=== PATIENT | female | born 1945 | race Asian ===

== ENCOUNTER → 2019-11-24 13:49 | Outpatient (CLI) | payer MEDICARE, BC, SELFPAY ==
--- NOTE | 2019-12-09 16:28 | PM.CARDMON.1 ---
[employer] Report Referral & Results Date Patient Seen: 11/24/19 Requesting provider: Samantha Olsen Indication: Palpitations Duration of monitoring (days): 7 Diary information: There were no patient diary entries or patient triggered events to correlate with any potential dysrhythmia Data: Minimum heart rate identified was 46 beats per minute at 07:17 on 11/27/2019 Maximum sinus heart rate was 143 beats per minute at 13:23 on 11/28/2019 Maximum overall heart rate was 184 beats per minute at 19:08 on 11/30/2019 during an 8.2 second run of supraventricular tachycardia Less than 1% of identified beats rather ventricular supraventricular ectopic in origin. Patient did have 7 runs of SVT the maximum rate being 184 beats per minute, and the fastest as above was also the longest run Impression: This teletypesetter monitor shows occasional to rare episodes of brief SVT as above No other significant dysrhythmias identified No symptoms to correlate with findings
== END ==
PROVIDERS: Referring Provider Family Medicine; Visit Provider Family Medicine
DX: R00.2 Palpitations (principal)
CPT/HCPCS: 0296T; 0298T

== ENCOUNTER → 2021-07-30 14:56 | Outpatient (CLI) | payer MEDICARE, BC, SELFPAY ==
--- NOTE | 2021-07-30 14:59 | DI.RAD.S_ITS ---
PROCEDURE: XR LUMBAR SPINE 2-3V INDICATIONS: BACK PAIN SCOLIOSIS TECHNIQUE: 2 views of the lumbar spine were acquired. COMPARISON: None. FINDINGS: Bones: 5 [id number] vertebrae are present. Dextrocurvature of the lumbar spine with associated facet arthrosis and endplate sclerosis/osteophytosis. At least moderate disc height loss at T12-S1. No vertebral body compression fractures. No suspicious bony lesions. Soft tissues: Overlying bowel gas pattern is normal. No suspicious soft tissue calcifications. IMPRESSION: No acute osseous abnormality. Dictated by: Silvio Iraheta M.D. on 07/30/2021 at 16:04 Approved by: Silvio Iraheta M.D. on 07/30/2021 at 16:07
--- NOTE | 2021-07-30 14:59 | DI.RAD.S_ITS ---
PROCEDURE: XR THORACIC SPINE 2V INDICATIONS: BACK PAIN SCOLIOSIS TECHNIQUE: 2 views of the thoracic spine were acquired. COMPARISON: None. FINDINGS: Bones: No fractures or dislocations. No suspicious bony lesions. Visualized ribs are intact. Moderate leftward curvature of the spine at the thoracolumbar junction. Moderate rightward curvature of the mid lumbar spine. Multilevel disc space narrowing and endplate osteophyte formation throughout the lumbar and thoracic spine. Soft tissues: No paravertebral stripe thickening. IMPRESSION: Multilevel degenerative disc disease. No acute fracture. No osseous lesion. If symptoms and/or clinical suspicion for pathology persist, further assessment with repeat, or advanced imaging (e.g., CT, MRI, or bone scan) may be helpful for further assessment. Dictated by: Lauren Grant M.D. on 07/30/2021 at 16:07 Approved by: Lauren Grant M.D. on 07/30/2021 at 16:54
== END ==
PROVIDERS: PCP Family Medicine; Referring Provider Family Medicine; Visit Provider Family Medicine
DX: M41.9 Scoliosis, unspecified (principal); M54.9 Dorsalgia, unspecified; M47.814 Spondylosis without myelopathy or radiculopathy, thoracic region
CPT/HCPCS: 72070; 72100

== ENCOUNTER → 2023-10-29 14:45 | Outpatient (CLI) | payer MEDICARE, BC, SELFPAY ==
--- NOTE | 2023-10-29 | DI.RAD.S_ITS ---
PROCEDURE: XR LUMBAR SPINE MIN 4V INDICATIONS: BACK PAIN TECHNIQUE: 5 views of the lumbar spine were acquired, including bilateral oblique views.>> COMPARISON: Located Within [facility], CR, XR LUMBAR SPINE 2-3V, 07/30/2021, 15:04. FINDINGS: Bones: 5 nonrib-bearing vertebrae are present. The lumbar spine shows severe dextroscoliosis with apex at L3. Abnormal kyphotic curvature is also noted with apex at L1.Diffuse degenerative changes are seen throughout the lumbar spine with disc space destruction, endplate sclerosis and osteophytes. Soft tissues: Overlying bowel gas pattern is unremarkable. No suspicious soft tissue calcifications. Oblique images: No pars defects identified. 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 on 10/29/2023 at 16:19 Approved by: Jethro Domingo M.D. on 10/29/2023 at 16:22
--- NOTE | 2023-10-29 | DI.RAD.S_ITS ---
PROCEDURE: XR THORACIC SPINE 3V INDICATIONS: BACK PAIN TECHNIQUE: 3 views of the thoracic spine were acquired. COMPARISON: [facility], CR, XR THORACIC SPINE 2V, 07/30/2021, 15:04. FINDINGS: Bones: Severe levoscoliosis of the thoracolumbar junction is identified with apex at T12. Severe degenerative changes of T12-L1 and L1-L2 also noted. No acute fractures or dislocations. No suspicious bony lesions. Twelve pairs of ribs are noted, and appear intact where visualized. Soft tissues: Atherosclerotic calcifications of the aorta noted. IMPRESSION: Severe levoscoliosis of the thoracolumbar junction with severe degenerative changes at T12-L1 and L1-L2 Dictated by: Jethro Domingo M.D. on 10/29/2023 at 16:14 Approved by: Jethro Domingo M.D. on 10/29/2023 at 16:17
== END ==
PROVIDERS: PCP Family Medicine; Referring Provider Family Medicine; Visit Provider Family Medicine
DX: M47.814 Spondylosis without myelopathy or radiculopathy, thoracic region (principal); M47.816 Spondylosis without myelopathy or radiculopathy, lumbar region; M41.20 Other idiopathic scoliosis, site unspecified; M54.50 Low back pain, unspecified; M25.551 Pain in right hip
CPT/HCPCS: 72072; 72100

== ENCOUNTER → 2023-11-30 08:49 | Outpatient (CLI) | payer MEDICARE, BC, SELFPAY ==
--- NOTE | 2023-11-30 | DI.ECHO.S_ITS ---
[facility]---------+ [facility] +---------+ : : [address] [place] [address] : : : : [id number] : : : : Phone: [phone]+ Echocardiogram Report + + :Name: SONY SALCIDO Study Date: 11/30/2023 Height: 60 in : :[facility] ReadingLocation: Weight: 134 lb : : Gender: Female BSA: 1.6 m2 : :: 1945 Age: 77 yrs BP: 158/86 mmHg: :Reason For Study: PALPITATIONS : :Ordering Physician: TONE, : :VERONICA Performed By: Esteban Carver : :Referring: VERONICA WAYNE : + + Interpretation Summary The ejection fraction is estimated to be 60-65%. Diastolic parameters suggest probable normal left ventricular diastolic function and normal filling pressures. The right ventricle is normal in size and function. There is mild mitral regurgitation. Pulmonary artery pressures cannot be estimated because of the lack of a measurable TR jet velocity but the IVC suggests a CVP of around 3 mmHg. Procedure: A two-dimensional transthoracic echocardiogram with color flow and Doppler was performed. The study quality was technically adequate. There is no prior echocardiogram noted for this patient. The patient was in normal sinus rhythm during the exam. The heart rate ranged between 59-64 bpm during the study. Left Ventricle: The left ventricle is normal in size and wall thickness. The ejection fraction is estimated to be 60-65%. Diastolic parameters suggest probable normal left ventricular diastolic function and normal filling pressures. Right Ventricle: The right ventricle is normal in size and function. Atria: The left atrial size is normal. Right atrial size is normal. Mitral Valve: The mitral valve is normal. There is no mitral valve stenosis. There is mild mitral regurgitation. Aortic Valve: The aortic valve opens well. The aortic valve is slightly calcified. There is no aortic valve stenosis. No aortic regurgitation is present. Tricuspid Valve: The tricuspid valve is normal in structure and function. There is trace tricuspid regurgitation. Pulmonary artery pressures cannot be estimated because of the lack of a measurable TR jet velocity but the IVC suggests a CVP of around 3 mmHg. Pulmonic Valve: The pulmonic valve is not well visualized. There is no pulmonic valvular stenosis. There is no pulmonic valvular regurgitation. Great Vessels: The aortic root is normal size. The ascending aorta could not be visualized. The IVC is of normal diameter and collapses greater than 50% with a sniff. This suggests a low right atrial pressure of 3 mm Hg. Pericardium/ Pleura There is no pericardial effusion. There is no pleural effusion. MMode/2D Measurements & Calculations LVIDd: 4.1 cm LVOT diam: 2.0 cm LVIDs: 2.7 cm Ao root diam: 2.9 cm FS: 35.2 % asc Aorta Diam: 2.8 cm IVSd: 1.1 cm LVPWd: 0.98 cm LV bearden. diameter/BSA (cm/m^2): 2.6 LV sys. diameter/BSA (cm/m^2): 1.7 LA A2 area: 12.0 cm2 RA long axis: 3.6 cm LA A4 area: 15.0 cm2 RA area: 12.1 cm2 LA length (vol): 4.5 cm RA vol: 34.2 ml LA vol: 34.1 ml RA : 21.7 ml/m2 LA vol index: 21.7 ml/m2 IVC diam: 1.5 cm RVD1 (basal): 3.4 cm RVD2 (mid): 3.0 cm TAPSE: 2.2 cm Doppler Measurements & Calculations Ao V2 max: 130.9 cm/sec LVOT Max Kiet: 93.4 cm/sec Ao V2 mean: 92.0 cm/sec LV V1 max P.5 mmHg Ao max P.9 mmHg LV V1 VTI: 22.7 cm Ao mean P.8 mmHg RICKIE(I,D): 2.3 cm2 Ao V2 VTI: 31.1 cm RICKIE(V,D): 2.3 cm2 sev ratio: 0.73 RICKIE indexed to BSA (cm^2/m^2): 1.5 MV E max kiet: 61.6 cm/sec TR max kiet: 253.8 cm/sec MV A max kiet: 68.3 cm/sec TR max P.8 mmHg MV E/A: 0.90 PA V2 max: 86.6 cm/sec Med Peak E' Kiet: 5.3 cm/sec PA V2 mean: 70.1 cm/sec E/E' med: 11.6 PA mean P.0 mmHg Lat Peak E' Kiet: 7.6 cm/sec PA pr(Accel): 27.6 mmHg E/E' lat: 8.1 E/e' average: 9.9 MV dec time: 0.13 sec SVLVOT): 71.8 ml Reading Physician:11:12 AM
== END ==
LOC: ECHO 08:52
PROVIDERS: PCP Family Medicine; Referring Provider Family Medicine; Visit Provider Family Medicine
DX: I34.0 Nonrheumatic mitral (valve) insufficiency (principal); I10 Essential (primary) hypertension; R00.2 Palpitations; I47.10 Supraventricular tachycardia, unspecified; G56.01 Carpal tunnel syndrome, right upper limb; M85.89 Other specified disorders of bone density and structure, multiple sites; E78.00 Pure hypercholesterolemia, unspecified; M54.50 Low back pain, unspecified; M25.551 Pain in right hip; M41.20 Other idiopathic scoliosis, site unspecified; E87.6 Hypokalemia; E88.810 Metabolic syndrome
CPT/HCPCS: 93306

== ENCOUNTER → 2024-03-01 10:28 | Outpatient (CLI) | payer MEDICARE, BC, SELFPAY ==
--- NOTE | 2024-03-01 18:22 | DI.NM.S_ITS ---
DATE OF SERVICE: 03/01/2024 PROCEDURE: Pharmacological perfusion study. INDICATIONS: Palpitations with underlying hypertension, hyperlipidemia, history of atrial tachycardia/PSVT. RADIOPHARMACEUTICAL: 25.5 millicuries technetium-99m Myoview IV was injected at stress and 12.3 millicuries technetium-99m Myoview IV was injected at rest. CARDIAC STRESS: Initially the patient attempted exercise study, but could not keep up with treadmill. . Test was converted to pharmacological perfusion study. The patient was given IV Lexiscan as per protocol. Resting blood pressure 120/66. The patient remained hemodynamically stable. Maximum blood pressure 170/88. Baseline rhythm sinus. During Lexiscan, some nonspecific ST-T changes up to 0.[address] depression in inferior leads and inferolateral leads. Occasional PVCs. No complex arrhythmias. No chest discomfort during Lexiscan. RAW DATA: Adequate myocardial uptake. GATED STUDY: Resting LV ejection fraction 81% and stress LV ejection fraction 96% without any obvious wall motion abnormalities. Resting end- diastolic volume 58 mL. TID ratio 0.75, which is within normal limits. Lung/heart ratio 0.38, which is within normal limits. MYOCARDIAL PERFUSION SCAN: Stress supine, resting supine, and stress prone images were compared to each other. Resting supine images revealed small size, mildly decreased perfusion of basal inferior wall as well as distal anteroseptum, however stress supine and stress prone images revealed normal myocardial perfusion. No ischemia. Summed rest score and summed stress score zero. CONCLUSION: This is a normal myocardial Lexiscan perfusion study. Resting LV ejection fraction 81%. Nonspecific ST-T changes during Lexiscan. Overall, low-risk myocardial perfusion scan. Andie Javed - DALE/shobha/SITA doc#: [id number]/job#: [id number] dd: 03/01/2024 17:21:00 dt: 03/01/2024 17:39:00 DICTATING MD/COPIES TO: Ludin Crowe MD COPIES MNE: ANA MARIA;
== END ==
LOC: NUCM 10:28
PROVIDERS: PCP Family Medicine; Referring Provider Internal Medicine Cardiovascular Disease; Visit Provider Internal Medicine Cardiovascular Disease
DX: I10 Essential (primary) hypertension (principal); R00.2 Palpitations; E78.5 Hyperlipidemia, unspecified
CPT/HCPCS: 78452; 93017; A9502; J2785

== ENCOUNTER → 2024-05-31 14:57 | Outpatient (CLI) | payer MEDICARE, BC, SELFPAY ==
--- NOTE | 2024-05-31 15:02 | DI.RAD.S_ITS ---
PROCEDURE: XR LUMBAR SPINE 2-3V INDICATIONS: LOW BACK PAIN, RIGHT HIP PAIN TECHNIQUE: 3 views of the lumbar spine were acquired. COMPARISON: [facility], CR, XR LUMBAR SPINE MIN 4V, 10/29/2023, 14:58. FINDINGS: Bones: 5 [id number] vertebrae are present. There is moderate dextroscoliosis of lumbar spine with apex at L3 level.. No vertebral body compression fractures. Degenerative endplate changes are noted throughout thoracic and lumbar spine. No suspicious bony lesions. Soft tissues: Overlying bowel gas pattern is normal. No suspicious soft tissue calcifications. IMPRESSION: Moderate scoliosis unchanged from prior study. Moderate degenerative disc disease throughout lumbar spine and visualized lower thoracic spine. No acute vertebral body compression fracture. Dictated by: Que Jo M.D. on 05/31/2024 at 16:32 Approved by: Que Jo M.D. on 05/31/2024 at 16:33
--- NOTE | 2024-05-31 15:02 | DI.RAD.S_ITS ---
PROCEDURE: XR FOOT RT MIN 3V INDICATIONS: RIGHT FOOT PAIN TECHNIQUE: 3 views of the foot were acquired. COMPARISON: None. FINDINGS: Bones: There is pes planus. Moderate to severe osteoarthritic changes are noted at 1st MTP joint and talonavicular joint. Significant dorsal marginal osteophyte formation involving 1st MTP joint is seen concerning for hallux limitus. No suspicious bony lesions. Soft tissues: No tibiotalar joint effusion. Achilles tendon appears normal. 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 No acute fracture or dislocation. Dictated by: Que Jo M.D. on 05/31/2024 at 16:34 Approved by: Que Jo M.D. on 05/31/2024 at 16:35
[2024-05-31 15:31] LABS: Add Manual Diff / Slide Review NO; Basophils Absolute Auto 0 /uL (0-100); Basophils Percent Auto 0.4 % (0-2); Eosinophils Absolute Auto 100 /uL (0-450); Eosinophils Percent Auto 2.1 % (2-4); Hematocrit 43.7 % (36-46); Lymphocytes Absolute Auto 1500 /uL (1100-4500); Lymphocytes Percent Auto 23.6 % (25-40); Mean Corpuscular HGB Conc 34.3 % (30-36); Mean Corpuscular Hemoglobin 31.3 PG (26-34); Mean Corpuscular Volume 91.1 fL (80-100); Monocytes Absolute Auto 600 /uL (0-900); Neutrophils Absolute Auto 4100 /uL (1500-7000); Neutrophils Percent Auto 64.9 % (50-75); Platelet Count 253 X10^3/uL (150-400); White Blood Cell Count 6.3 X10^3/uL (4.5-11.0)
[2024-05-31 15:41] LABS: BUN Creatinine Ratio 27.4 (6-22); Blood Urea Nitrogen 17 mg/dL (7-17); C-Reactive Protein Quant < 0.5 mg/dL (<1.0); Calcium 9.8 mg/dL (8.4-10.2); Carbon Dioxide 28 mmol/L (22-32); Chloride 100 mmol/L (98-107); Estimated Glomerular Filt Rate > 60 mL/min (>60); Glucose 88 mg/dL (80-110); HEMOLYSIS < 15 (0-50); Sodium 137 mmol/L (137-145); Uric Acid 5.3 mg/dL (2.5-6.2)
[2024-05-31 16:12] LABS: Erythrocyte Sedimentation Rate 3 MM/HR (0-20)
== END ==
PROVIDERS: PCP Family Medicine; Referring Provider Family Medicine; Visit Provider Family Medicine
DX: E87.1 Hypo-osmolality and hyponatremia (principal); M79.671 Pain in right foot; Z13.0 Encounter for screening for diseases of the blood and blood-forming organs and certain disorders involving the immune mechanism; M54.50 Low back pain, unspecified; M25.551 Pain in right hip; M41.86 Other forms of scoliosis, lumbar region; M51.36 Other intervertebral disc degeneration, lumbar region; M19.071 Primary osteoarthritis, right ankle and foot
CPT/HCPCS: 36415; 72100; 73630; 80048; 84550; 85025; 85651; 86140